=== PATIENT | female | born 1965 | race Caucasian/White ===

== ENCOUNTER → 2016-11-11 | Outpatient (CLI) | payer OTHER ==
[2016-11-11 10:33] LABS: Basophils % (A) 1 %; CH 31.8; CHCM 31.9; Eosinophils # (A) 0.2 k/uL (0-0.7); Eosinophils % (A) 3 %; HDW 2.04; HGB 12.6 gm/dL (11.4-16.0); Luc # (Auto) 0.18; Luc % (Auto) 3; Lymphocytes # (A) 1.3 k/uL (1.0-4.8); Lymphocytes % (A) 22 %; MCH 32.2 pg (25.0-35.0); MCHC 32.2 g/dL (31.0-37.0); MCV 100.2 fL (80.0-100.0); Monocytes # (A) 0.3 k/uL (0-1.0); Monocytes % (A) 6 %; Neutrophils # (A) 3.9 k/uL (1.3-7.7); Neutrophils % (A) 67 %; RBC 3.89 m/uL (3.80-5.40); WBC 5.8 k/uL (3.8-10.6); WBC (Perox) 6.29
[2016-11-11 11:09] LABS: ALT 27 U/L (9-52); AST 17 U/L (14-36); Alkaline Phosphatase 67 U/L (38-126); Anion Gap 10 mmol/L; Blood Urea Nitrogen 14 mg/dL (7-17); Calcium 10.3 mg/dL (8.4-10.2); Carbon Dioxide 23 mmol/L (22-30); Chloride 110 mmol/L (98-107); Cholesterol 139 mg/dL (<200); Glucose 108 mg/dL (74-99); HDL Cholesterol 61 mg/dL (40-60); Non-African American GFR(MDRD) >60 (>60 ml/min/1.73 sqM); Sodium 143 mmol/L (137-145); Total Bilirubin 0.4 mg/dL (0.2-1.3); Total Protein 7.2 g/dL (6.3-8.2); Triglycerides 56 mg/dL (<150)
== END | disposition home or self-care (01) ==
LOC: LABWHC1 10:12
PROVIDERS: ATTEND Family Medicine
DX: Z00.00 Encounter for general adult medical examination without abnormal findings (principal); E21.3 Hyperparathyroidism, unspecified
CPT/HCPCS: 36415; 80053; 80061; 83970; 84439; 84443; 85025

== ENCOUNTER → 2017-12-01 | Outpatient (CLI) | payer BC ==
[2017-12-01 09:11] LABS: Basophils # (A) 0.1 k/uL (0-0.2); Basophils % (A) 1 %; Eosinophils # (A) 0.3 k/uL (0-0.7); Eosinophils % (A) 5 %; HGB 12.7 gm/dL (11.4-16.0); Lymphocytes # (A) 1.9 k/uL (1.0-4.8); Lymphocytes % (A) 28 %; MCH 30.5 pg (25.0-35.0); MCV 98.6 fL (80.0-100.0); Mean Platelet Volume 7.2; Monocytes # (A) 0.4 k/uL (0-1.0); Monocytes % (A) 6 %; Neutrophils # (A) 3.8 k/uL (1.3-7.7); Neutrophils % (A) 58 %; Platelet Count 316 k/uL (150-450); RBC 4.16 m/uL (3.80-5.40); RDW 12.2 % (11.5-15.5); WBC 6.6 k/uL (3.8-10.6)
[2017-12-01 09:31] LABS: ALT 23 U/L (9-52); AST 19 U/L (14-36); Albumin 3.8 g/dL (3.5-5.0); Alkaline Phosphatase 78 U/L (38-126); Anion Gap 9 mmol/L; Blood Urea Nitrogen 16 mg/dL (7-17); Carbon Dioxide 25 mmol/L (22-30); Chloride 107 mmol/L (98-107); Cholesterol 165 mg/dL (<200); Glucose 92 mg/dL (74-99); HDL Cholesterol 63 mg/dL (40-60); LDL Cholesterol,Calculated 88 mg/dL (0-99); Sodium 141 mmol/L (137-145); Total Bilirubin 0.2 mg/dL (0.2-1.3); Total Protein 6.8 g/dL (6.3-8.2); Triglycerides 71 mg/dL (<150)
[2017-12-01 09:47] LABS: T4, Free (Free Thyroxine) 1.02 ng/dL (0.78-2.19)
== END | disposition home or self-care (01) ==
LOC: LABWHC1 08:29
PROVIDERS: ATTEND Family Medicine
DX: Z00.00 Encounter for general adult medical examination without abnormal findings (principal); E21.3 Hyperparathyroidism, unspecified
CPT/HCPCS: 36415; 80053; 80061; 83970; 84439; 84443; 85025

== ENCOUNTER → 2017-12-31 | Outpatient (CLI) | payer BC ==
--- NOTE | 2018-01-01 08:14 | MM ---
Reason for exam: additional evaluation requested from prior study. Last mammogram was performed 2 years and 1 month ago. History: Patient history of other cancer. Family history of breast cancer in grandmother at age 71. Benign US breast aspiration single LT of the left breast, July 30, 2014. Physical Findings: Nurse Summary: 0.5 x 1cm nodule in the right breast upper outer quadrant x 3, clustered, palpable (nurse ts). MG Diagnostic Mammo w CAD SHAN Bilateral CC and MLO view(s) were taken. Prior study comparison: December 13, 2015, bilateral MG 3d screening mammo w/cad. November 06, 2014, left breast MG diagnostic mammo LT w CAD. The breast tissue is heterogeneously dense. This may lower the sensitivity of mammography. Previous mammotome biopsy in the right breast. There is no new dominant lesion. These results were verbally communicated with the patient and result sheet given to the patient on 12/31/17. ASSESSMENT: Incomplete: need additional imaging evaluation, BI-RAD 0 RECOMMENDATION: Ultrasound of the left breast. (palpable)
--- NOTE | 2018-01-01 08:15 | USB ---
Reason for exam: additional evaluation requested from abnormal screening. History: Patient history of other cancer. Family history of breast cancer in grandmother at age 71. Benign US breast aspiration single LT of the left breast, July 30, 2014. US Breast Limited LT Left breast ultrasound demonstrates two oval, cystic lesions at 1 o'clock measuring 0.6 x 0.5 x 0.2cm and 0.7 x 0.7 x 0.3cm. These results were verbally communicated with the patient and result sheet given to the patient on 12/31/17. ASSESSMENT: Probably benign, BI-RAD 3 RECOMMENDATION: Ultrasound of the left breast in 6 months.
== END | disposition home or self-care (01) ==
LOC: RADMAMWWP 14:26
PROVIDERS: ATTEND Family Medicine
DX: N63.10 Unspecified lump in the right breast, unspecified quadrant (principal); N63.20 Unspecified lump in the left breast, unspecified quadrant; M19.90 Unspecified osteoarthritis, unspecified site
CPT/HCPCS: 77066

== ENCOUNTER → 2018-01-08 | Outpatient (CLI) | payer BC ==
--- NOTE | 2018-01-08 12:14 | BD ---
EXAMINATION TYPE: MG DEXA axial skeleton. DATE OF EXAM: 01/08/2018 COMPARISON: 02.05.2009 CLINICAL HISTORY: 52 YR OLD FEMALE.....ICD-10 CODE: M19.90 OA Height: 60.5 Weight: 170 FRAX RISK QUESTIONS: Alcohol (3 or more units per day): NO Family History (Parent hip fracture): NO Glucocorticoids (More than 3mos): NO (Ex: prednisone, prednisolone, methylprednisolone, dexamethasone, and hydrocortisone). History of Fracture in Adulthood: NO Secondary Osteoporosis: YES 1. Type 1 Diabetes: NO 2. Hyperthyroidism: YES 3. Menopause before 45: NA 4. Malnutrition: NO 5. Chronic liver disease: NO Rheumatoid Arthritis: NO Current Tobacco Use: NO RISK FACTORS HISTORY OF: BOTH ELBOWS, 26 YRS AGO Family History of Osteoporosis: YES, HER MOTHER Active: YES Diet low in dairy products/other sources of calcium: YES, A BIT LOW Postmenopausal woman: UNSURE, HYST FOR UTERUS ONLY Hyperparathyroidism: YES, VERY HIGH LEVELS.. Adrenal Insufficiency: NO MEDICATIONS: Additional Medications: NONE TO NOTE Additional History: MEN I, MULT ENDOCRINE NEOPLASIA, EXAM MEASUREMENTS: Bone mineral densitometry was performed using the [employer]. Bone mineral density as measured about the Lumbar spine is: ----- L1-L4(G/cm2): 1.157 T Score Values are as follows: ----- L1: -0.8 ----- L2: -1.0 ----- L3: 0.4 ----- L4: 0.2 ----- L1-L4: -0.2 Bone mineral density has: Decreased -4.5% since study of: 02.05.2009 Bone mineral density about the R hip (g/cm2): 1.005 Bone mineral density about the L hip (g/cm2): 1.003 T Score values are as follows: -----R Neck: -1.1 -----L Neck: -1.0 -----R Total: 0.0 -----L Total: 0.0 Bone mineral density has: Decreased -10.1% since study of: 02.05.2009 FRAX%S: THERE IS A 4.2% CHANCE OF A MAJOR OSTEOPOROTIC FX AND A 0.2% FOR A HIP FX....PROBABILITY O F FX IN 10 YRS TIME IMPRESSION: Osteopenia (T Score between -2.5 and -1) with regards to the right femur. There is slightly increased risk of fracture and the patient may be considered for treatment. Re-Screen 2-5 years. NOTE: T-SCORE=SD OF THE YOUNG ADULT MEAN.
== END | disposition home or self-care (01) ==
LOC: RADBDWWP 10:34
PROVIDERS: ATTEND Family Medicine
DX: M85.851 Other specified disorders of bone density and structure, right thigh (principal)
CPT/HCPCS: 77080

== ENCOUNTER 2018-05-18 09:29 | Observation (INO) | payer BC ==
[2018-05-18] MEDS ORDERED: ASPIRIN 81 MG PO STA (10:23)
[2018-05-18] MEDS ORDERED: DIAZEPAM 5 MG TAB PO STA (10:23)
--- NOTE | 2018-05-18 10:28 | ED ---
General Adult HPI - General Chief complaint: Recheck/Abnormal Lab/Rx Stated complaint: abd pain Time Seen by Provider: 05/18/18 10:05 Source: patient Mode of arrival: ambulatory Limitations: no limitations - History of Present Illness Initial comments: Patient is a 53-year-old female who presents with a chief complaint of neck pain and chest pain status post parathyroid venous testing on Sunday at [facility]. Patient states that the day after her procedure she felt well however over the subsequent days she developed pain in her neck, shoulders, and now radiating into the chest. The patient states that her pain is characterized as "tight." There are no aggravating or alleviating factors. Timing is constant. Patient states that she called her doctors at [facility] who stated that she should be evaluated for blood clots. Patient states she is taking Benton for pain without relief. - Related Data Previous Rx's Medication Instructions Recorded HYDROcodone/APAP 7.5-325MG [Benton 1 - 2 each PO Q6HR PRN #60 tab 09/14/14 7.5] Allergies Allergy/AdvReac Type Severity Reaction Status Date / Time No Known Allergies Allergy Verified 05/18/18 09:36 Review of Systems ROS Statement: Those systems with pertinent positive or pertinent negative responses have been documented in the HPI. ROS Other: All systems not noted in ROS Statement are negative. Cardiovascular: Reports: chest pain Musculoskeletal: Reports: back pain, other (Neck pain) Past Medical History Additional Past Medical History / Comment(s): hyperparathroidism History of Any Multi-Drug Resistant Organisms: None Reported Past Surgical History: Appendectomy, Breast Surgery, Cholecystectomy, Hysterectomy Additional Past Surgical History / Comment(s): lithotripsy. parathyroid surgery x2. lt breast boipsy Past Anesthesia/Blood Transfusion Reactions: Motion Sickness, Postoperative Nausea & Vomiting (PONV) Past Psychological History: No Psychological Hx Reported Smoking Status: Never smoker Past Alcohol Use History: Occasional Past Drug Use History: None Reported - Past Family History Father Family Medical History: Cancer General Exam Limitations: no limitations General appearance: alert, in no apparent distress Head exam: Present: atraumatic, normocephalic Eye exam: Present: normal appearance ENT exam: Present: normal exam Neck exam: Present: normal inspection, tenderness (Paraspinal tenderness). Absent: meningismus Respiratory exam: Present: normal lung sounds bilaterally. Absent: respiratory distress Cardiovascular Exam: Present: regular rate, normal rhythm GI/Abdominal exam: Present: soft. Absent: distended, tenderness Rectal exam: Present: deferred Extremities exam: Present: normal inspection Back exam: Present: normal inspection, full ROM. Absent: tenderness, CVA tenderness (R), CVA tenderness (L) Neurological exam: Present: alert, oriented X3, CN II-XII intact, normal gait Psychiatric exam: Present: normal affect, normal mood Skin exam: Present: warm, dry, intact Course Vital Signs 05/18/18 09:33 Temperature 97.8 F Pulse Rate 63 Respiratory 20 Rate Blood Pressure 128/85 O2 Sat by Pulse 100 Oximetry Medical Decision Making - Medical Decision Making Patient presents with chief complaint of neck pain, shoulder pain, chest pain status post venous parathyroid sampling on Sunday. The patient was sent to the emergency department today for concerns blood clots. On initial evaluation , her vital signs are stable, patient is in no acute distress. Patient saturating 100% on room air. Patient be evaluated with EKG, basic labs, and chest x-ray. Patient has a contrast ALLERGY therefore she may require steroid prep CT scans are necessary. D-dimer was sent though anticipated to be high given patient's recent procedure. I discussed the possibility of transfer to [facility], patient states that she would like to stay in house possible. EKG performed at 1111 shows normal sinus rhythm rate of 61 bpm. EKG is otherwise unremarkable. 12:05 PM Lab evaluation of this patient thus far is unremarkable except for a d-dimer elevation of 0.97. At this time, patient was given a dose of Lovenox and started on the 13 hour contrast ALLERGY protocol. This case was discussed with Dr. burciaga to accept admission for observation. I discussed with the patient, she is agreeable. - Lab Data Result diagrams: 05/18/18 11:04 05/18/18 11:04 Lab Results 05/18/18 05/18/18 05/18/18 Range/Units 11:04 11:04 11:04 WBC 12.6 H (3.8-10.6) k/uL RBC 4.33 (3.80-5.40) m/uL Hgb 13.1 (11.4-16.0) gm/dL Hct 41.1 (34.0-46.0) % MCV 94.9 (80.0-100.0) fL MCH 30.2 (25.0-35.0) pg MCHC 31.9 (31.0-37.0) g/dL RDW 12.3 (11.5-15.5) % Plt Count 304 (150-450) k/uL Neutrophils % 84 % Lymphocytes % 8 % Monocytes % 6 % Eosinophils % 0 % Basophils % 0 % Neutrophils # 10.6 H (1.3-7.7) k/uL Lymphocytes # 1.0 (1.0-4.8) k/uL Monocytes # 0.8 (0-1.0) k/uL Eosinophils # 0.1 (0-0.7) k/uL Basophils # 0.0 (0-0.2) k/uL D-Dimer 0.97 H (<0.60) mg/L FEU Sodium 138 (137-145) mmol/L Potassium 4.5 (3.5-5.1) mmol/L Chloride 107 (98-107) mmol/L Carbon Dioxide 27 (22-30) mmol/L Anion Gap 4 mmol/L BUN 14 (7-17) mg/dL Creatinine 0.84 (0.52-1.04) mg/dL Est GFR (CKD-EPI)AfAm >90 (>60 ml/min/1.73 sqM) Est GFR (CKD-EPI)NonAf 81 (>60 ml/min/1.73 sqM) Glucose 106 H (74-99) mg/dL Calcium 9.6 (8.4-10.2) mg/dL Troponin I (0.000-0.034) ng/mL NT-Pro-B Natriuret Pep pg/mL 05/18/18 05/18/18 Range/Units 11:04 11:04 WBC (3.8-10.6) k/uL RBC (3.80-5.40) m/uL Hgb (11.4-16.0) gm/dL Hct (34.0-46.0) % MCV (80.0-100.0) fL MCH (25.0-35.0) pg MCHC (31.0-37.0) g/dL RDW (11.5-15.5) % Plt Count (150-450) k/uL Neutrophils % % Lymphocytes % % Monocytes % % Eosinophils % % Basophils % % Neutrophils # (1.3-7.7) k/uL Lymphocytes # (1.0-4.8) k/uL Monocytes # (0-1.0) k/uL Eosinophils # (0-0.7) k/uL Basophils # (0-0.2) k/uL D-Dimer (<0.60) mg/L FEU Sodium (137-145) mmol/L Potassium (3.5-5.1) mmol/L Chloride (98-107) mmol/L Carbon Dioxide (22-30) mmol/L Anion Gap mmol/L BUN (7-17) mg/dL Creatinine (0.52-1.04) mg/dL Est GFR (CKD-EPI)AfAm (>60 ml/min/1.73 sqM) Est GFR (CKD-EPI)NonAf (>60 ml/min/1.73 sqM) Glucose (74-99) mg/dL Calcium (8.4-10.2) mg/dL Troponin I <0.012 (0.000-0.034) ng/mL NT-Pro-B Natriuret Pep 156 pg/mL Disposition Referrals: Godwin Bustos DO [Primary Care Provider] - 1-2 days
[2018-05-18 11:23] LABS: Basophils % (A) 0 %; Eosinophils # (A) 0.1 k/uL (0-0.7); Eosinophils % (A) 0 %; HCT 41.1 % (34.0-46.0); HGB 13.1 gm/dL (11.4-16.0); Lymphocytes % (A) 8 %; MCH 30.2 pg (25.0-35.0); MCHC 31.9 g/dL (31.0-37.0); MCV 94.9 fL (80.0-100.0); Mean Platelet Volume 7.1; Monocytes # (A) 0.8 k/uL (0-1.0); Monocytes % (A) 6 %; Neutrophils # (A) 10.6 k/uL (1.3-7.7); Neutrophils % (A) 84 %; Platelet Count 304 k/uL (150-450); RBC 4.33 m/uL (3.80-5.40); RDW 12.3 % (11.5-15.5); WBC 12.6 k/uL (3.8-10.6)
--- NOTE | 2018-05-18 11:29 | XR ---
EXAMINATION TYPE: XR chest 2V DATE OF EXAM: 05/18/2018 HISTORY: Pain. REFERENCE: NONE. FINDINGS: Heart size is upper limits of normal. The lungs are clear. Pleural spaces are clear. IMPRESSION: NO ACTIVE CARDIOTHORACIC ABNORMALITY.
[2018-05-18 11:31] LABS: Anion Gap 4 mmol/L; Blood Urea Nitrogen 14 mg/dL (7-17); Calcium 9.6 mg/dL (8.4-10.2); Carbon Dioxide 27 mmol/L (22-30); Chloride 107 mmol/L (98-107); Glucose 106 mg/dL (74-99); Potassium 4.5 mmol/L (3.5-5.1); Sodium 138 mmol/L (137-145)
[2018-05-18] MEDS ORDERED: diphenhydrAMINE 50 MG/ML 1 ML VIAL IVP ONE (11:59)
[2018-05-18] MEDS ORDERED: methylPREDNISolone SOD SUCCI 125 MG/2 ML VIAL IV ONE (11:59)
[2018-05-18] MEDS ORDERED: FAMOTIDINE 20 MG/2 ML VIAL IV STA ×2 (11:59→17:50)
[2018-05-18] MEDS ORDERED: NALOXONE 0.4 MG/ML 1 ML VIAL IV PRN (12:03)
[2018-05-18] MEDS ORDERED: ENOXAPARIN 60 MG/0.6 ML SYRINGE SQ STA (12:03)
[2018-05-18 16:31] VITALS: BMI 34.0
[2018-05-18] MEDS ORDERED: HYDROcodone/APAP 5-325MG 1 EACH TAB PO PRN (17:24)
[2018-05-18] MEDS ORDERED: diphenhydrAMINE 50 MG/ML 1 ML VIAL IVP STA (17:50)
[2018-05-18] MEDS: ACETAMINOPHEN TAB 325 MG TAB PO PRN ×2 (17:56→22:00)
--- NOTE | 2018-05-18 18:49 | CT ---
CT CHEST FOR PULMONARY EMBOLISM. EXAMINATION TYPE: CT angio chest DATE OF EXAM: 05/18/2018 INDICATION: Elevated d-dimer CT DLP: 396.5 mGycm, Automated exposure control for dose reduction was used. CONTRAST: Patient injected with 125 mL of Isovue 370. COMPARISON: None TECHNIQUE: CT of the chest is performed on a spiral scan at 2 mm thick sections. Study is performed with intravenous contrast timed for evaluation for pulmonary embolism. This will limit additional po rtions of the evaluation. 3-D MIP images reconstructed by the technologist are reviewed on the compu ter in the coronal and sagittal planes. FINDINGS: No persistent filling defects are evident to suggest an acute pulmonary embolism. No mediastinal or hilar adenopathy enlarged by CT criteria is evident. The ascending aorta diameter at the level of the main pulmonary artery is 3.1 cm. The main pulmonary artery diameter at the bifur cation is 2.4 cm. There is a 0.9 cm pulmonary nodule medial left apex. Series [address] section through the upper abdomen. Left kidney appears somewhat atrophic. There may be montserrat e scarring or prior infarct along the posterior medial kidney. IMPRESSIONS: 1. No acute pulmonary embolism. 2. Pulmonary nodule left medial apex. Additional workup is recommended. Consider PET CT
[2018-05-18] MEDS: VIT A,C & E-LUTEIN-MINERALS 1 EACH TAB PO SCH (20:42)
--- NOTE | 2018-05-18 22:06 | CT ---
EXAMINATION TYPE: CT angio head neck DATE OF EXAM: 05/18/2018 HISTORY: Neck pain radiating towards back COMPARISON: None CT DLP: 318.6 mGycm. Automated Exposure Control for Dose Reduction was Utilized. TECHNIQUE: CTA scan of the neck is performed with IV Contrast, patient injected with 125 mL of Isovu e 370, axial images are obtained, coronal and sagittal reformatted images are reviewed. Three-D recon structed images are created on an independent workstation and reviewed. FINDINGS: Carotid/Vascular Structures: There is a three-vessel arch. Common carotid arteries appear unremarkabl e. Carotid bifurcations are normal. No focal stenosis is evident. Internal carotid arteries appear no rmal. No dissection is identified. Other: [place]: Internal carotid arteries bifurcate into A1 and M1 segments. A2 segments darrian ear unremarkable. Middle cerebral artery branches appear unremarkable. Vertebral arteries are patent and codominant. Basilar artery is unremarkable. Posterior cerebral vasculature appears normal. Communication Electronic Technician ior communicating arteries are patent bilaterally. The anterior communicating artery is patent. IMPRESSION: 1. No significant flow-limiting stenosis bilateral carotid bifurcations. 2. [place] appears within normal limits.
[2018-05-19 08:18] VITALS: RESP 16; TEMP 98.5
[2018-05-19] MEDS: VIT A,C & E-LUTEIN-MINERALS 1 EACH TAB PO SCH (08:26)
[2018-05-19 12:22] VITALS: BP 100/67; PULSE 74
--- NOTE | 2018-05-19 13:58 | P.HPIM ---
History of Present Illness H&P Date: 05/19/18 Chief Complaint: Chest pain/abdominal pain Patient is a 53-year-old female who presents with a chief complaint of neck pain and chest pain status post parathyroid venous testing on Sunday at [facility]. Patient states that the day after her procedure she felt well however over the subsequent days she developed pain in her neck, shoulders, and now radiating into the chest. The patient states that her pain is characterized as "tight." There are no aggravating or alleviating factors. Timing is constant. Patient states that she called her doctors at [facility] who stated that she should be evaluated for blood clots. Patient states she is taking Hans[place] for pain without relief. Review of Systems Review of system is as per HPI Past Medical History Additional Past Medical History / Comment(s): hyperparathroidism, MEN type 1 History of Any Multi-Drug Resistant Organisms: None Reported Past Surgical History: Appendectomy, Breast Surgery, Cholecystectomy, Hysterectomy Additional Past Surgical History / Comment(s): lithotripsy. parathyroid surgery x2. lt breast boipsy. left shoulder surgery Past Anesthesia/Blood Transfusion Reactions: Motion Sickness, Postoperative Nausea & Vomiting (PONV) Past Psychological History: No Psychological Hx Reported Smoking Status: Never smoker Past Alcohol Use History: Occasional Past Drug Use History: None Reported - Past Family History Mother Additional Family Medical History / Comment(s): MEN type 1 led to tumors on pancreas, part of pancreas removed which led to DM Father Family Medical History: Cancer Additional Family Medical History / Comment(s): Lung CA Medications and Allergies Home Medications Medication Instructions Recorded Confirmed Type Meclizine [Antivert] 12.5 mg PO Q6H PRN 05/18/18 05/18/18 History Vit C/E/Zn/Coppr/Lutein/Zeaxan 1 cap PO BID 05/18/18 05/18/18 History [Preservision Areds 2 Softgel] valACYclovir [Valtrex] 500 mg PO Q8HR PRN 05/18/18 05/18/18 History Allergies Allergy/AdvReac Type Severity Reaction Status Date / Time Iodinated Contrast- Oral and Allergy Unknown Verified 05/18/18 12:56 IV Dye Physical Exam Vitals: Vital Signs Temp Pulse Pulse Resp BP BP Pulse Ox 05/19/18 08:00 98.5 F 63 16 103/67 98 05/19/18 04:00 61 18 05/19/18 03:40 97.9 F 61 18 114/78 97 05/19/18 00:10 97.7 F 69 18 116/72 97 05/19/18 00:00 55 L 18 05/18/18 20:00 56 L 18 05/18/18 18:50 98.8 F 84 16 116/77 98 05/18/18 13:47 97.6 F 61 16 108/74 98 05/18/18 13:30 98.6 F 57 L 16 140/86 100 Intake and Output 05/18/18 05/19/18 05/19/18 22:59 06:59 14:59 Other: Voiding Method Toilet Toilet Toilet # Voids 1 1 Weight 81.647 kg - Constitutional General appearance: Present: average body habitus, cooperative, no acute distress - EENT Eyes: Present: anicteric sclerae, EOMI, PERRLA, normal appearance ENT: Present: hearing grossly normal, normal oropharynx Ears: bilateral: normal - Neck Neck: Present: normal ROM. Absent: lymphadenopathy, rigidity, thyromegaly Carotids: negative: bruit present Thyroid: bilateral: normal size, negative: enlarged, nodule - Respiratory Respiratory: bilateral: CTA, negative: rales, rhonchi, wheezing - Cardiovascular Rhythm: regular Heart sounds: normal: S1, S2 Abnormal Heart Sounds: Absent: systolic murmur, diastolic murmur - Gastrointestinal General gastrointestinal: Present: normal bowel sounds, soft. Absent: distended , organomegaly, tenderness - Genitourinary Genitourinary Comment(s): deferred - Integumentary Integumentary: Present: normal turgor. Absent: jaundiced, rash, ulcer - Neurologic Neurologic: Present: CNII-XII intact. Absent: focal deficits - Musculoskeletal Musculoskeletal: Present: gait normal, strength equal bilaterally - Psychiatric Psychiatric: Present: A&O x's 3, appropriate affect, intact judgment & insight Results CBC & Chem 7: 05/18/18 11:04 05/18/18 11:04 Labs: Abnormal Lab Results - Last 24 Hours (Table) 05/18/18 Range/Units 11:04 D-Dimer 0.97 H (<0.60) mg/L FEU Thrombosis Risk Factor Assmnt - Choose All That Apply Any of the Below Risk Factors Present?: Yes Each Factor Represents 1 point: Age 41-60 years, Obesity (BMI >25) Thrombosis Risk Factor Assessment Total Risk Factor Score: 2 Thrombosis Risk Factor Assessment Level: Low Risk Assessment and Plan Assessment: 1. Chest pain rule out PE - We will admit patient to cardiac telemetry unit and monitor EKG and cardiac enzymes - CTA of the chest was done which was negative for PE but does show a pulmonary nodule - Patient's workup and established care is at [facility] - Patient is completely asymptomatic this morning; no further complaint of chest shoulder or neck pain - Vital signs and labs are stable - We will discharge patient home with a plan to follow-up with [facility] for further care Time with Patient: Less than 30
--- NOTE | 2018-05-19 13:59 | P.DS ---
Providers Date of admission: 05/18/18 12:03 Expected date of discharge: 05/19/18 Attending physician: Jon Jean MD Primary care physician: Godwin Bustos Hospital Course: See progress note dated 05/19/2018 for details Patient Condition at Discharge: Serious Plan - Discharge Summary Discharge Rx Participant: No New Discharge Prescriptions: Continue Vit C/E/Zn/Coppr/Lutein/Zeaxan [Preservision Areds 2 Softgel] 1 cap PO BID valACYclovir [Valtrex] 500 mg PO Q8HR PRN PRN Reason: Cold Sores Meclizine [Antivert] 12.5 mg PO Q6H PRN PRN Reason: Motion Sickness Discharge Medication List Meclizine [Antivert] 12.5 mg PO Q6H PRN 05/18/18 [History] Vit C/E/Zn/Coppr/Lutein/Zeaxan [Preservision Areds 2 Softgel] 1 cap PO BID 05/18 [History] valACYclovir [Valtrex] 500 mg PO Q8HR PRN 05/18/18 [History] Follow up Appointment(s)/Referral(s): Godwin Bustos DO [Primary Care Provider] - 1-2 days Discharge Disposition: HOME SELF-CARE
== END 2018-05-19 12:30 | disposition home or self-care (01) ==
LOC: EC 09:29 → 3OBS 12:03
PROVIDERS: ADMIT Internal Medicine; ATTEND Internal Medicine
DX: R07.9 Chest pain, unspecified (principal); R79.89 Other specified abnormal findings of blood chemistry; M54.2 Cervicalgia; M25.519 Pain in unspecified shoulder; R91.1 Solitary pulmonary nodule; R10.9 Unspecified abdominal pain; M54.9 Dorsalgia, unspecified; E31.21 Multiple endocrine neoplasia [MEN] type I; E21.3 Hyperparathyroidism, unspecified; E66.9 Obesity, unspecified; Z68.34 Body mass index [BMI] 34.0-34.9, adult; Z90.49 Acquired absence of other specified parts of digestive tract; Z91.041 Radiographic dye allergy status; Z90.710 Acquired absence of both cervix and uterus; Z90.89 Acquired absence of other organs; Z83.41 Family history of multiple endocrine neoplasia [MEN] syndrome; Z83.3 Family history of diabetes mellitus; Z83.49 Family history of other endocrine, nutritional and metabolic diseases; Z80.1 Family history of malignant neoplasm of trachea, bronchus and lung; E89.2 Postprocedural hypoparathyroidism
CPT/HCPCS: 99285 ×2; 96374 ×2; 96375 ×3; 96372 ×2; 96376; 36415; 93005; 85379; 83880; 80048; 84484; 85025; 71046; 70496; 70498; 71275; G0378 ×2; J1200; J2930; J1650; Q9967

== ENCOUNTER → 2019-12-04 | Outpatient (CLI) | payer BC ==
[2019-12-04 10:44] LABS: Basophils % (A) 0 %; Eosinophils # (A) 0.2 k/uL (0-0.7); Eosinophils % (A) 3 %; HCT 42.4 % (34.0-46.0); HGB 12.8 gm/dL (11.4-16.0); Lymphocytes # (A) 1.7 k/uL (1.0-4.8); Lymphocytes % (A) 26 %; MCH 29.3 pg (25.0-35.0); MCHC 30.2 g/dL (31.0-37.0); Mean Platelet Volume 7.6; Monocytes # (A) 0.4 k/uL (0-1.0); Monocytes % (A) 6 %; Neutrophils # (A) 4.1 k/uL (1.3-7.7); Neutrophils % (A) 61 %; Platelet Count 296 k/uL (150-450); RBC 4.37 m/uL (3.80-5.40); RDW 13.9 % (11.5-15.5); WBC 6.7 k/uL (3.8-10.6)
[2019-12-04 16:03] LABS: African American GFR (CKD) 85.2 (60.0-200.0); Albumin 4.3 g/dL (3.80-4.90); Albumin/Globulin Ratio 1.65 (1.60-3.17); Chol/HDL Ratio 2.55; Globulin 2.6 g/dL (1.6-3.3); Non-African American GFR(CKD) 73.5 (60.0-200.0); Potassium 4.9 mmol/L (3.5-5.5); Total Bilirubin 0.6 mg/dL (0.2-1.2); Total Protein 6.9 g/dL (6.2-8.2)
[2019-12-04 16:12] LABS: T4, Free (Free Thyroxine) 1.2 ng/dL (0.80-1.80)
[2019-12-04 17:08] LABS: Hemoglobin A1C 5.2 % (4.0-6.0)
== END | disposition home or self-care (01) ==
LOC: LABWHC1 10:04
PROVIDERS: ATTEND Family Medicine
DX: Z00.00 Encounter for general adult medical examination without abnormal findings (principal); E21.3 Hyperparathyroidism, unspecified
CPT/HCPCS: 36415; 80053; 80061; 83036; 83970; 84439; 84443; 85025

== ENCOUNTER → 2020-05-21 | Outpatient (CLI) | payer BC ==
--- NOTE | 2020-05-21 18:33 | BD ---
EXAMINATION TYPE: Axial Bone Density DATE OF EXAM: 05/21/2020 COMPARISON: 02.04.2018 CLINICAL HISTORY: 55 YR OLD FEMALE ICD-10 CODE: E21.3 HYPERPARATHYROIDISM Height: 60.2 Weight: 196 FRAX RISK QUESTIONS: Family History (Parent hip fracture): NO FX History of Fracture in Adulthood: YES 3. Menopause before 45: 49 YRS OLD RISK FACTORS HISTORY OF: HX OF BOTH ELBOWS BROKEN AT 27 YRS OLD History of Wrist Fracture: LT WRIST AT 27 YRS OLD Family History of Osteoporosis: YES, HER MOTHER, NO HIP FX Postmenopausal woman: YES, 47 YRS OLD OR OLDER Hyperparathyroidism: YES Adrenal Insufficiency: NO MEDICATIONS: Prednisone or other steroids: ONLY ON AND OFF Additional Medications: VIT D Additional History: HYPERCALCEMIA, RENAL CONCERNS, BLOCKAGE AND SHRINKAGE, HYPERPARATHYROIDISM EXAM MEASUREMENTS: Bone mineral densitometry was performed using the [employer]. Bone mineral density as measured about the Lumbar spine is: ----- L1-L4(G/cm2): 1.286 T Score Values are as follows: ----- L1: -0.1 ----- L2: 0.3 ----- L3: 1.0 ----- L4: 1.9 ----- L1-L4: 0.9 Bone mineral density has: Increased 11.8% since study of: 02.04.2018 Bone mineral density about the R hip (g/cm2): 0.957 Bone mineral density about the L hip (g/cm2): 1.042 T Score values are as follows: -----R Neck: -1.4 -----L Neck: -1.1 -----R Total: --0.4 -----L Total: 0.3 Bone mineral density has: Decreased -0.5% since study of: 02.04.2018 FRAX%s: THERE IS A 9.4% CHANCE FOR A MAJOR OSTEOPOROTIC FX AND A -0.5% FOR HIP.....PROBABILITY FOR FX IN 10 YRS TIME IMPRESSION: Osteopenia (T Score between -2.5 and -1). There is slightly increased risk of fracture and the patient may be considered for treatment. Re-Screen 2-5 years. NOTE: T-SCORE=SD OF THE YOUNG ADULT MEAN.
== END | disposition home or self-care (01) ==
LOC: RADBDWWP 13:20
PROVIDERS: ATTEND Internal Medicine Endocrinology, Diabetes & Metabolism
DX: M85.80 Other specified disorders of bone density and structure, unspecified site (principal); D3A.8 Other benign neuroendocrine tumors
CPT/HCPCS: 77080

== ENCOUNTER → 2020-05-27 | Outpatient (CLI) | payer BC ==
[2020-05-27 18:39] LABS: Prolactin 7.1 ng/mL (2.8-29.2)
== END | disposition home or self-care (01) ==
LOC: LABWHC1 10:35
PROVIDERS: ATTEND Internal Medicine Endocrinology, Diabetes & Metabolism
DX: E31.21 Multiple endocrine neoplasia [MEN] type I (principal); D3A.8 Other benign neuroendocrine tumors; E21.3 Hyperparathyroidism, unspecified; M62.81 Muscle weakness (generalized)
CPT/HCPCS: 36415; 82306; 82533; 83970; 84146

== ENCOUNTER → 2020-06-07 | Outpatient (CLI) | payer BC ==
--- NOTE | 2020-06-08 03:47 | MR ---
EXAMINATION TYPE: MR abdomen wo/w con DATE OF EXAM: 06/07/2020 COMPARISON: None HISTORY: Evaluate for neuroendocrine tumors CONTRAST: Standard multiplanar, multisequence MRI departmental protocol utilizing 9 mL intravenous Gadavist isaak olinium contrast. There is a small left kidney with deformity consistent with scarring. There is no hydronephrosis. The re are bilateral small renal cortical cysts that measure up to 10 mm. I see no evidence of retroperit castaneda adenopathy. There is no evidence of adrenal mass. Liver shows no focal defect. The bile ducts are not dilated. Spleen is intact. There is a 8 mm focus of increased signal in the posterior body of the pancreas on the T2 images. This area has low signal on precontrast images and appears to enhance with the contrast. This is therefore not a cyst. The kapoor creatic duct appears normal. Common bile duct appears normal. Gallbladder is absent. The stomach is i ntact. There is no evidence of gastric mass. There is no ascites. There is no sign of pleural effusion. I see no evidence of an intestinal mass. T he contrast images show no pathologic enhancement. IMPRESSION: Deformity of the left kidney consistent with scarring similar to the old CT scan of 02/17/2015. There is small enhancing focus in the posterior body of the pancreas that could be potentially a min roendocrine tumor. This lesion is probably present on the old CT scan of 02/17/2015.
== END | disposition home or self-care (01) ==
LOC: RADMRIMAIN 20:53
PROVIDERS: ATTEND Internal Medicine Endocrinology, Diabetes & Metabolism
DX: D3A.8 Other benign neuroendocrine tumors (principal); E31.21 Multiple endocrine neoplasia [MEN] type I; E21.3 Hyperparathyroidism, unspecified
CPT/HCPCS: 74183; A9585

== ENCOUNTER → 2020-09-07 | Outpatient (CLI) | payer BC | END | disposition home or self-care (01) | LOC: LABWHC1 16:04 | PROVIDERS: ATTEND Family Medicine | DX: Z20.828 Contact with and (suspected) exposure to other viral communicable diseases (principal) | CPT/HCPCS: U0003; C9803 ==

== ENCOUNTER → 2020-12-20 | Outpatient (CLI) | payer BC ==
[2020-12-20 18:52] LABS: Basophils # (A) 0.05 X 10*3/uL (0.00-0.10); Basophils % (A) 0.7 %; Eosinophils # (A) 0.17 X 10*3/uL (0.04-0.35); Eosinophils % (A) 2.5 %; HCT 41.2 % (37.2-46.3); HGB 13.2 g/dL (12.0-15.0); Lymphocytes # (A) 2.01 X 10*3/uL (0.90-5.00); MCH 31.2 pg (27.0-32.0); MCV 97.4 fL (80.0-97.0); Mean Platelet Volume 10.9 fL (9.5-12.2); Monocytes # (A) 0.62 X 10*3/uL (0.20-1.00); Monocytes % (A) 8.9 %; Neutrophils # (A) 4.07 X 10*3/uL (1.80-7.70); Neutrophils % (A) 58.8 %; Platelet Count 312 X 10*3/uL (140-440); RBC 4.23 X 10*6/uL (4.10-5.20); RDW 13.9 % (11.5-14.5); WBC 6.93 X 10*3/uL (4.50-10.00)
[2020-12-20 19:43] LABS: African American GFR (CKD) 74.5 (60.0-200.0); Albumin 4.6 g/dL (3.80-4.90); Albumin/Globulin Ratio 1.84 (1.60-3.17); Calcium 10.4 mg/dL (8.7-10.3); Chol/HDL Ratio 3.3; Globulin 2.5 g/dL (1.6-3.3); LDL Cholesterol,Calculated 118.4 mg/dL (0.0-131.0); Non-African American GFR(CKD) 64.3 (60.0-200.0); Phosphorus 2.5 mg/dL (2.4-5.1); Potassium 4.9 mmol/L (3.5-5.5); Total Bilirubin 0.5 mg/dL (0.2-1.2); Total Protein 7.1 g/dL (6.2-8.2); VLDL Calculation 33.6 mg/dL (5.00-40.00)
[2020-12-20 19:52] LABS: T4, Free (Free Thyroxine) 1.1 ng/dL (0.80-1.80)
== END | disposition home or self-care (01) ==
LOC: LABWHC1 11:21
PROVIDERS: ATTEND Family Medicine
DX: Z00.00 Encounter for general adult medical examination without abnormal findings (principal); E55.9 Vitamin D deficiency, unspecified; E21.3 Hyperparathyroidism, unspecified
CPT/HCPCS: 36415; 80053; 80061; 80069; 82306; 82533; 82941; 83036; 83970; 84439; 84443; 85025

== ENCOUNTER → 2021-09-22 | Outpatient (CLI) | payer BC ==
--- NOTE | 2021-09-23 08:55 | CT ---
EXAMINATION TYPE: CT abdomen pelvis wo con DATE OF EXAM: 09/22/2021 COMPARISON: 02/17/2015 HISTORY: Microhematuria, abdominal pain. Hx Mulltiple endocrine neoplasia 1 CT DLP: 765.30 mGycm Automated exposure control for dose reduction was used. TECHNIQUE: Helical acquisition of images was performed from the lung bases through the pelvis. FINDINGS: LUNG BASES: No significant abnormality is appreciated. LIVER/GB: No significant abnormality is appreciated. PANCREAS: Surgical clips are seen in the peripancreatic region which obscures the previously noted pa ncreatic lesions. Postcontrast exam would be required for further evaluation or MRI. SPLEEN: No significant abnormality is seen. ADRENALS: No significant abnormality is seen. KIDNEYS: Bilateral nephrolithiasis with innumerable calcification bilateral that has also been presen t on the prior study. Scarred kidneys bilaterally with moderate atrophy of the left kidney. No signif icant hydronephrosis or distention of either ureter. Lobulation and cortical loss involving both kidn eys suggestive of chronic medical renal disease. No obvious hydronephrosis. Assessment for mass. No c alcifications inside the urinary bladder. ADENOPATHY: None visualized. OSSEOUS STRUCTURES: Hypertrophic and degenerative changes of the vertebral element grade 1 anterolis thesis L3 on L4. BOWEL: No significant abnormality is seen. OTHER: There is a 3.5 cm mass is seen in the left lower pelvis near the pelvic sidewall which was not seen on the prior exam. Recommend pelvic ultrasound could potentially could be ovarian in etiology n onspecific calcifications in the left hemipelvis. IMPRESSION: 1. Bilateral nephrolithiasis with no obvious hydronephrosis. Cortical loss deformity of both kidneys are suggestive of chronic medical renal disease. Assessment for mass limited without contrast. Overal l morphology of the kidneys are similar to the prior exam. 2. Pancreatic lesions previously described are not well-seen on today's exam which may reflect noncon trast technique and severe artifact from apparent surgical clips in the peripancreatic region correla te clinically. If there is concern for pancreatic mass MRI would be required. 3. There is a new left adnexal soft tissue mass seen adjacent to the left pelvic sidewall measuring 3 .5 cm. Malignancy not excluded recommend pelvic ultrasound.
== END | disposition home or self-care (01) ==
LOC: RADCTMAIN 18:23
PROVIDERS: ATTEND Urology
DX: R31.1 Benign essential microscopic hematuria (principal); R10.9 Unspecified abdominal pain; N20.0 Calculus of kidney; K86.89 Other specified diseases of pancreas; R19.00 Intra-abdominal and pelvic swelling, mass and lump, unspecified site
CPT/HCPCS: 74176

== ENCOUNTER → 2021-11-29 | Outpatient (CLI) | payer BC ==
[2021-11-29 14:36] LABS: Appearance,Urine Clear (Clear); Bacteria,Urine Occasional /hpf; Bilirubin,Urine Negative (Negative); Blood,Urine Negative (Negative); Color,Urine Light Yellow; Glucose,Urine (UA) Negative (Negative); Ketones,Urine Negative (Negative); Leukocyte Esterase,Urine Large (Negative); Mucus,Urine Rare /hpf; Nitrite,Urine Negative (Negative); Protein,Urine Negative (Negative); RBC,Urine 3 /hpf (0-5); Specific Gravity,Urine 1.015 (1.001-1.035); Squamous Epithelial Cell,Urine <1 /hpf (0-4); Urobilinogen,Urine <2.0 mg/dL (<2.0); WBC,Urine 140 /hpf (0-5)
[2021-11-29 18:57] LABS: Basophils # (A) 0.05 X 10*3/uL (0.00-0.10); Basophils % (A) 0.6 %; Eosinophils # (A) 0.19 X 10*3/uL (0.04-0.35); Eosinophils % (A) 2.2 %; HCT 43.1 % (37.2-46.3); HGB 13.4 g/dL (12.0-15.0); Immature Grans, Automated 0.2 %; Lymphocytes # (A) 2.77 X 10*3/uL (0.90-5.00); Lymphocytes % (A) 32.7 %; MCH 30.6 pg (27.0-32.0); MCHC 31.1 g/dL (32.0-37.0); MCV 98.4 fL (80.0-97.0); Mean Platelet Volume 10.2 fL (9.5-12.2); Monocytes # (A) 0.73 X 10*3/uL (0.20-1.00); Monocytes % (A) 8.6 %; NRBC Per 100 WBC 0 /100 WBCS (0.0-0.0); Neutrophils % (A) 55.7 %; Platelet Count 329 X 10*3/uL (140-440); RBC 4.38 X 10*6/uL (4.10-5.20); RDW 12.7 % (11.5-14.5); WBC 8.46 X 10*3/uL (4.50-10.00)
[2021-11-29 19:09] LABS: ALT 28 U/L (8-44); AST 23 U/L (13-35); African American GFR (CKD) 76.4 (60.0-200.0); Albumin 4.6 g/dL (3.8-4.9); Albumin/Globulin Ratio 1.57 (1.60-3.17); Alkaline Phosphatase 94 U/L (41-126); BUN/Creat Ratio 18.69 Ratio (12.00-20.00); Blood Urea Nitrogen 18.2 mg/dL (9.0-27.0); Calcium 11.3 mg/dL (8.7-10.3); Carbon Dioxide 24.6 mmol/L (20.0-27.5); Chloride 105 mmol/L (96-109); Globulin 2.9 g/dL (1.6-3.3); Glucose 115 mg/dL (70-110); Non-African American GFR(CKD) 65.9 (60.0-200.0); Potassium 5.4 mmol/L (3.5-5.5); Sodium 141 mmol/L (135-145); Total Bilirubin <0.15 mg/dL (0.30-1.20); Total Protein 7.4 g/dL (6.2-8.2)
== END | disposition home or self-care (01) ==
LOC: LABPAT 12:28
PROVIDERS: ATTEND Urology
DX: Z01.812 Encounter for preprocedural laboratory examination (principal); N20.0 Calculus of kidney
CPT/HCPCS: 36415; 80053; 81001; 85025; 87086

== ENCOUNTER → 2021-12-05 | Outpatient (CLI) | payer BC ==
--- NOTE | 2021-12-06 02:10 | MR ---
EXAMINATION TYPE: MR pancreas wo/w con DATE OF EXAM: 12/05/2021 COMPARISON: MR scan 06/07/2020 HISTORY: Pancreatic mass, history of surgery CONTRAST: Standard multiplanar, multisequence MRI departmental protocol images were obtained without contrast a nd with 9 mL intravenous Gadavist gadolinium contrast. On the T2 images there is a 12 mm rounded focus of increased signal in the posterior aspect of the milla dy of the pancreas. The pancreatic duct is not dilated. The remainder of the pancreas has fairly norm al signal pattern. The spleen is intact. There is no discrete liver mass. There is no evidence of ple ural effusion. The bile ducts are not dilated. Kidneys have cortical thinning on the left side small cystic areas. This could relate to scarring fro m chronic pyelonephritis. There is some compensatory hypertrophy of the right kidney. There is no sandrita dence of retroperitoneal adenopathy. The contrast images show the small rounded pancreatic lesion shows some heterogeneous enhancement. Th is is not a cyst. There is no ascites. There is normal enhancement of the portal venous system. IMPRESSION: 12 mm mass in the body of the pancreas with some enhancement and increased 2 mm in diameter compared to the old exam. This is consistent with a solid pancreatic tumor. Normal pancreatic duct.
== END | disposition home or self-care (01) ==
LOC: RADMRIMAIN 20:40
PROVIDERS: ATTEND Family Medicine
DX: K86.89 Other specified diseases of pancreas (principal)
CPT/HCPCS: 74183; A9585

== ENCOUNTER 2021-12-07 06:45 | Day surgery (SDC) | payer BC ==
[2021-12-06 09:19] VITALS: BMI 36.6
--- NOTE | 2021-12-06 18:32 | P.GSHP ---
History of Present Illness H&P Date: 12/06/21 56 yo female with a history of stones and recurrent utis. SHe recentk had a ct scan identifying bilatereal renal stones carlito scarring left greater than right. SHe comes for removal of the right renal stones. Alternatives have been discussed - Constitutional Constitutional: Denies chills, Denies fever - EENT Eyes: denies blurred vision, denies pain Ears, nose, mouth and throat: Denies headache, Denies sore throat - Cardiovascular Cardiovascular: Denies chest pain, Denies shortness of breath - Respiratory Respiratory: Denies cough, Denies 7 - Gastrointestinal Gastrointestinal: Denies abdominal pain, Denies diarrhea, Denies nausea, Denies vomiting - Genitourinary (Female) Genitourinary: Denies dysuria, Denies hematuria - Genitourinary (Male) Genitourinary: Denies dysuria, Denies hematuria - Musculoskeletal Musculoskeletal: Denies myalgias - Integumentary Integumentary: Denies pruritus, Denies rash - Neurological Neurological: Denies numbness, Denies weakness - Psychiatric Psychiatric: Denies anxiety, Denies depression - Endocrine Endocrine: Denies fatigue, Denies weight change Past Medical History Additional Past Medical History / Comment(s): hyperparathroidism. KIDNEY STONES. CURRENTLY ON ANTIOBIOTIC FOR KIDNEY INFECTION. MEN type 1 w/HYPERCALCEMIA History of Any Multi-Drug Resistant Organisms: None Reported Past Surgical History: Appendectomy, Breast Surgery, Cholecystectomy, Hysterectomy, Orthopedic Surgery Additional Past Surgical History / Comment(s): lithotripsy. parathyroid surgery x2. lt breast boipsy. TUMOR REMOVED FROM LT LUNG-. TUMOR REMOVED FROM PANCREAS-HAD SPLENIC BLEED 04/10/19-REPAIRED AT [facility]. LT SHOULDER SX Past Anesthesia/Blood Transfusion Reactions: Motion Sickness, Postoperative Nausea & Vomiting (PONV) Smoking Status: Never smoker - Past Family History Mother Additional Family Medical History / Comment(s): MEN type 1 led to tumors on pancreas, part of pancreas removed which led to DM Father Family Medical History: Cancer Daughter(s) Additional Family Medical History / Comment(s): MEN TYPE 1 Medications and Allergies Home Medications Medication Instructions Recorded Confirmed Type Meclizine [Antivert] 12.5 mg PO Q6H PRN 05/18/18 12/06/21 History Vit C/E/Zn/Coppr/Lutein/Zeaxan 1 cap PO BID 05/18/18 12/06/21 History [Preservision Areds 2 Softgel] valACYclovir [Valtrex] 500 mg PO Q8HR PRN 05/18/18 12/06/21 History Cholecalciferol [Vitamin D3 (25 50 mcg PO BID 12/06/21 12/06/21 History Mcg = 1000 Iu)] Ciprofloxacin HCl [Cipro] 500 mg PO Q12HR 12/06/21 12/06/21 History Cyanocobalamin/Cobamamide [Vitamin 1 tab SUBLINGUAL DAILY 12/06/21 12/06/21 History B-12 5,000 Mcg Tab Sl] L-Tyrosine 500 mg PO DAILY 12/06/21 History Ondansetron [Zofran] 4 mg PO Q8HR PRN 12/06/21 12/06/21 History Allergies Allergy/AdvReac Type Severity Reaction Status Date / Time Iodinated Contrast Media Allergy Rash/Hives Verified 12/06/21 09:03 [Iodinated Contrast- Oral and IV Dye] NUCLEAR CONTRAST Allergy Rash/Hives Uncoded 12/06/21 09:03 Surgical - Exam - General well developed, well nourished, no distress - Eyes normal ocular movement, no icteric - ENT no hearing loss, no congestion - Neck no masses, trachea midline - Respiratory normal respiratory effort, clear to auscultation - Abdomen Abdomen: soft, non tender, no guarding, no rigid, no rebound - Integumentary no rash, no abnormal pigmentation - Neurologic no disoriented, no combative - Psychiatric oriented to time, oriented to person, oriented to place, speech is normal, memory intact Results - Imaging CT scan - abdomen: report reviewed, image reviewed CT scan - pelvis: report reviewed, image reviewed Assessment and Plan Assessment: Impression: Bilateral renal stones, with recurrent utis Plan: right ureteroscopy with laser lithotripsy
[~2021-12-07 06:45] MED LIST: AMPICILLIN 1,000 MG in SODIUM CHLORIDE 0.9% 50 ML IVPB PRN; DEXAMETHASONE SOD PHOSPHATE 4 MG/ML 1 ML VIAL IV ONE; HYDROmorphone 0.5 MG/0.5 ML SYRINGE IVP PRN; LACTATED RINGERS 1,000 ML IV SCH; ONDANSETRON 4 MG/2 ML VIAL IVP ONE
[2021-12-07] MEDS ORDERED: LACTATED RINGERS 1,000 ML IV ONE ×2 (07:11→08:56)
[2021-12-07] MEDS ORDERED: SCOPOLAMINE 1.5MG/72HR PATCH TRANSDERM STA (07:12)
[2021-12-07] MEDS ORDERED: PHENYLEPHRINE-0.9% NACL SYG 1,000 MCG/10 ML SYRINGE ONE (07:45)
[2021-12-07] MEDS ORDERED: GLYCOPYRROLATE 0.2 MG/ML 2 ML VIAL ONE (07:45)
[2021-12-07] MEDS ORDERED: LIDOCAINE 1% INJ 10MG/ML (20 ML MDV) ONE (07:45)
[2021-12-07] MEDS ORDERED: fentaNYL (PF) 50 MCG/ML 2 ML AMP ONE (07:45)
[2021-12-07] MEDS ORDERED: NEOSTIGMINE 1 MG/ML 10 ML VIAL ONE (07:45)
[2021-12-07] MEDS ORDERED: MIDAZOLAM 2 MG/2 ML VIAL ONE (07:45)
[2021-12-07] MEDS ORDERED: diphenhydrAMINE 50 MG/ML 1 ML VIAL ONE (07:45)
[2021-12-07] MEDS ORDERED: SUCCINYLCHOLINE CHLORIDE 100 MG/5 ML SYR IV ONE (07:45)
[2021-12-07] MEDS ORDERED: ROCURONIUM 10 MG/ML (5 ML VIAL) IV ONE (07:45)
[2021-12-07] MEDS ORDERED: PROPOFOL 10 MG/ML 20 ML VIAL IV ONE (07:45)
[2021-12-07] MEDS: GENTAMICIN 100 MG in SODIUM CHLORIDE 0.9% 100 ML IVPB PRN ×2 (08:17→08:22)
[2021-12-07] MEDS ORDERED: IOPAMIDOL-370 50ML BTL MISCELLANE ONE (08:47)
[2021-12-07] MEDS ORDERED: IOPAMIDOL-370 50ML BTL IRRIGATION ONE (08:47)
[2021-12-07 09:09] VITALS: RESP 16; TEMP 96.9
--- NOTE | 2021-12-07 09:16 | P.OP ---
Date of Procedure: 12/07/21 Preoperative Diagnosis: Recurrent urine infection, bilateral renal stones Postoperative Diagnosis: Same Procedure(s) Performed: Cystoscopy, right ureteroscopy laser lithotripsy, placement of 624 stent Anesthesia: DIONICIO Surgeon: Kyle Camarena Estimated Blood Loss (ml): 10 Pathology: none sent Condition: stable Disposition: PACU Indications for Procedure: Patient is 56. She came with recurring E. coli infections. She has no history of stones. She has bilateral renal stones with scarring. The question is whether the E. coli has secondarily infected the stones or whether she has chronic bladder issues. She comes for removal stones on the right side Description of Procedure: Patient brought to the operating suite. She's given general anesthesia. She's placed lithotomy position with sterile prep and drape. Cystoscopy Foroblique lens and 21-Kinyarwanda sheath identifies chronic cystitis cystica. The ureteral orifices are normal. No 35 wires passed up into the right ureter. Over the wires passed a 86-85-Zamsfv reentry sheath. The inner sheath is removed. I passed the flexible ureteroscope into the right collecting system. There does not appear to be any chronic infection. I go through each calyx and identify the large stones in the lower pole calyx . The stones appear to be calcium oxalate based on visual appearance and do not appear to be infected. With the 270 laser probe the stones are broken into find sand so that she can pass them out. At the end of the procedure there is no significant stones to be basketed or broken. Because of the recurrent infections however I will place a stent An 035 wires passed through the inner sheath. I removed the inner sheath and passed an 6 x 24 double-J cath that coils in the right renal pelvis and the bladder. the bladder is drained and the patient's awakened and returned recovery room good condition. She tolerated the procedure well be discharged home upon recovery. I'll keep her on Macrobid. I'll probably leave her on Macrobid for 6-8 weeks at a low-dose as I suspect she has chronic cystitis and I doubt that the kidney stones are stone infected based on the appearance of the collecting system and the stones.
[2021-12-07] MEDS ORDERED: KETOROLAC 15 MG/ML 1 ML VIAL IVP ONE (09:30)
[2021-12-07] MEDS ORDERED: HYDROmorphone 0.5 MG/0.5 ML SYRINGE IVP ONE (09:35)
--- NOTE | 2021-12-07 09:45 | FL ---
Fluoroscopy HISTORY: Right renal stones 1.27 minutes fluoroscopy time supplied to the referring clinician. 7 intraoperative C-arm images doc ument the procedure. See dictated report from urology.
[2021-12-07 10:07] VITALS: PULSE 66
[2021-12-07 10:22] VITALS: BP 117/81
== END 2021-12-07 11:03 | disposition home or self-care (01) ==
LOC: OR 06:45
PROVIDERS: ATTEND Urology
DX: N20.0 Calculus of kidney (principal); Z87.440 Personal history of urinary (tract) infections; E31.21 Multiple endocrine neoplasia [MEN] type I; E83.52 Hypercalcemia; E21.3 Hyperparathyroidism, unspecified; Z87.442 Personal history of urinary calculi; Z90.49 Acquired absence of other specified parts of digestive tract; Z90.710 Acquired absence of both cervix and uterus; Z90.2 Acquired absence of lung [part of]; Z98.890 Other specified postprocedural states; Z83.41 Family history of multiple endocrine neoplasia [MEN] syndrome; Z83.3 Family history of diabetes mellitus; Z80.9 Family history of malignant neoplasm, unspecified; Z79.899 Other long term (current) drug therapy; Z91.041 Radiographic dye allergy status
CPT/HCPCS: 74420; 52356; C2625; C1769; J2250; J1200; J1100; J2710; J2001; J3010; J1580; J0290; J1885; J2370; J0330; J2704; J1170; Q9967; J1790

== ENCOUNTER → 2022-03-27 | Outpatient (CLI) | payer BC ==
--- NOTE | 2022-03-27 13:54 | CT ---
EXAMINATION TYPE: CT abdomen pelvis wo con DATE OF EXAM: 03/27/2022 COMPARISON: CT dated 09/22/2021 HISTORY: Pancreatic mass, pelvic mass CT DLP: 1417 mGycm Automated exposure control for dose reduction was used. TECHNIQUE: Helical acquisition of images was performed from the lung bases through the pelvis. FINDINGS: Suboptimal CT scan due to the lack of oral and IV contrast administration. LUNG BASES: No significant abnormality is appreciated. LIVER/GB: Previous cholecystectomy. No definite hepatic focal lesion. PANCREAS: Artifacts from surgical clips and surgical material between the, and the pancreas. Subtle 5 mm hypodensity in the pancreatic tail, suboptimally assessed and could represent a tiny pancreatic c yst or slightly focally dilated pancreatic duct. Other tiny hypodensities are seen in the pancreatic head, grossly stable compared to the previous CT scan. SPLEEN: No significant abnormality is seen. ADRENALS: Slightly thickened left adrenal stable. Unremarkable right adrenal. KIDNEYS: Atrophic changes of the left kidney, appreciated previously. Multiple variable sized bilater al renal calculi and medullary calcifications. Please correlate for medullary nephrocalcinosis. No hy droureter or hydronephrosis. FREE AIR: No free air is visualized RETROPERITONEAL ADENOPATHY: None visualized REPRODUCTIVE ORGANS: No gross uterine or adnexal mass. The previously described left pelvic lesion is not appreciated by this CT scan. URINARY BLADDER: No significant abnormality is seen. PELVIC ADENOPATHY: No pathologically enlarged pelvic lymph nodes. OSSEOUS STRUCTURES: Degenerative changes of the lower lumbar spine. Osteopenia. No gross aggressive bone lesion. BOWEL: No significant abnormality is seen. OTHER: Minimal arterial atherosclerotic calcifications. No sizable ascites. IMPRESSION: Suboptimal assessment of the pancreas due to the lack of IV contrast administration. Few millimetric pancreatic hypodensities likely representing tiny cysts or IPMNs as described above. Further enhanced CT scan or MRI assessment can be considered. The previously seen left pelvic lesion is not appreciated by this CT scan. Further elective pelvic ul trasound assessment can be considered. Persistent bilateral renal calculi, atrophic left kidney and signs suggestive of bilateral medullary nephrocalcinosis. Other findings as described above.
== END | disposition home or self-care (01) ==
LOC: RADCTMAIN 08:53
PROVIDERS: ATTEND Family Medicine
DX: K86.9 Disease of pancreas, unspecified (principal); N20.0 Calculus of kidney; N26.1 Atrophy of kidney (terminal)
CPT/HCPCS: 74176

== ENCOUNTER → 2023-12-01 | Outpatient (CLI) | payer BC ==
[2023-12-01 21:57] LABS: Basophils # (A) 0.06 X 10*3/uL (0.00-0.10); Basophils % (A) 0.9 %; Eosinophils # (A) 0.14 X 10*3/uL (0.04-0.35); Eosinophils % (A) 2.2 %; HCT 40.2 % (37.2-46.3); Lymphocytes # (A) 1.72 X 10*3/uL (0.90-5.00); Lymphocytes % (A) 26.7 %; MCH 31.2 pg (27.0-32.0); MCHC 32.3 g/dL (32.0-37.0); MCV 96.4 FL (80.0-97.0); Mean Platelet Volume 10.9 FL (9.5-12.2); Monocytes # (A) 0.69 X 10*3/uL (0.20-1.00); Monocytes % (A) 10.7 %; NRBC Per 100 WBC 0 X 10*3/uL (0.00-0.01); Neutrophils # (A) 3.81 X 10*3/uL (1.80-7.70); Neutrophils % (A) 59.3 %; Platelet Count 332 X 10*3/uL (140-440); RBC 4.17 X 10*6/uL (4.10-5.20); WBC 6.43 X 10*3/uL (4.50-10.00)
[2023-12-01 22:25] LABS: ALT 24 U/L (8-44); AST 20 U/L (13-35); Albumin 4.4 g/dL (3.8-4.9); Albumin/Globulin Ratio 1.63 Ratio (1.60-3.17); Alkaline Phosphatase 98 U/L (41-126); BUN/Creat Ratio 15.56 Ratio (12.00-20.00); Calcium 10.3 mg/dL (8.7-10.3); Carbon Dioxide 23.9 mmol/L (21.6-31.8); Chloride 105 mmol/L (96-109); Chol/HDL Ratio 3.17 Ratio; Globulin 2.7 g/dL (1.6-3.3); Glucose 116 mg/dL (70-110); LDL Cholesterol,Calculated 121.9 mg/dL (0.0-131.0); Potassium 4.7 mmol/L (3.5-5.5); Sodium 139 mmol/L (135-145); Total Bilirubin 0.3 mg/dL (0.3-1.2); Total Protein 7.1 g/dL (6.2-8.2); VLDL Calculation 17.74 mg/dL (5.00-40.00)
== END | disposition home or self-care (01) ==
LOC: LABWHC1 09:18
PROVIDERS: ATTEND Family Medicine
DX: Z00.00 Encounter for general adult medical examination without abnormal findings (principal); E55.9 Vitamin D deficiency, unspecified; E21.3 Hyperparathyroidism, unspecified; R73.9 Hyperglycemia, unspecified
CPT/HCPCS: 36415; 80053; 80061; 82306; 83036; 83970; 84439; 84443; 85025

== ENCOUNTER → 2024-01-23 | Outpatient (CLI) | payer BC ==
--- NOTE | 2024-01-24 08:48 | MM ---
Reason for Exam: Screening (asymptomatic). Last mammogram was performed 6 year(s) and 1 month(s) ago. Patient History: Menarche at age 14. First Full-Term at age 27. Hysterectomy at age 48. Other cancer, age 23. 07/30/2014, Benign Cyst Aspiration on the left side. Maternal grandmother had breast cancer, age 71. Risk Values: Jhoana 5 year model risk: 1.4%. NCI Lifetime model risk: 8.9%. Prior Study Comparison: 11/06/2014 Left Diagnostic Mammogram, [facility]. 12/13/2015 Bilateral Screening Mammogram, [facility]. 12/31/2017 Bilateral Diagnostic Mammogram, [facility]. Tissue Density: The breasts are heterogeneously dense, which may obscure small masses. Findings: Analyzed By CAD. Left breast biopsy clip. Right breast: There is no suspicious group of microcalcifications or new suspicious mass. Left breast: There is no suspicious group of microcalcifications or new suspicious mass. Overall Assessment: Benign, BI-RAD 2 Management: Screening Mammogram of both breasts in [address] [facility] will attempt to contact patient to return for supplemental views and ultrasound if indicated. Patient should continue monthly self-breast exams. A clinical breast exam by your physician is recommended on an annual basis. This exam should not preclude additional follow-up of suspicious palpable abnormalities. Note on Jhoana scores and lifetime risk: 1. A Jhoana score greater than 3% is considered moderate risk. If this is the case, consider specialist referral to assess eligibility for a risk reducing agent. 2. If overall lifetime risk for the development of breast cancer is 20% or higher, the patient may qualify for future screening with alternating mammogram and breast MRI. Electronically signed and approved by: Roverto Kimble DO
== END | disposition home or self-care (01) ==
LOC: RADMAMWWP 16:12
PROVIDERS: ATTEND Family Medicine
DX: Z12.31 Encounter for screening mammogram for malignant neoplasm of breast (principal); Z80.3 Family history of malignant neoplasm of breast
CPT/HCPCS: 77063; 77067

== ENCOUNTER → 2024-12-27 | Outpatient (CLI) | payer BC ==
[2024-12-27 15:05] LABS: ALT 28 U/L (8-44); AST 23 U/L (13-35); Albumin 4.3 g/dL (3.8-4.9); Albumin/Globulin Ratio 1.59 Ratio (1.60-3.17); Alkaline Phosphatase 90 U/L (41-126); BUN/Creat Ratio 13.36 Ratio (12.00-20.00); Blood Urea Nitrogen 14.7 mg/dL (9.0-27.0); Calcium 10.3 mg/dL (8.7-10.3); Chloride 113 mmol/L (96-109); Chol/HDL Ratio 3.76 Ratio; Globulin 2.7 g/dL (1.6-3.3); Glucose 120 mg/dL (70-110); LDL Cholesterol,Calculated 136.9 mg/dL (0.0-131.0); Potassium 4.9 mmol/L (3.5-5.5); Sodium 144 mmol/L (135-145); T4, Free (Free Thyroxine) 1.26 ng/dL (0.80-1.80); Total Bilirubin 0.4 mg/dL (0.3-1.2)
[2024-12-27 15:58] LABS: Basophils # (A) 0.05 X 10*3/uL (0.00-0.10); Basophils % (A) 0.8 %; Eosinophils # (A) 0.23 X 10*3/uL (0.04-0.35); Eosinophils % (A) 3.6 %; HCT 41.3 % (37.2-46.3); HGB 12.7 g/dL (12.0-15.0); Lymphocytes # (A) 2.15 X 10*3/uL (0.90-5.00); Lymphocytes % (A) 33.8 %; MCH 30.1 pg (27.0-32.0); MCHC 30.8 g/dL (32.0-37.0); MCV 97.9 FL (80.0-97.0); Mean Platelet Volume 10.8 FL (9.5-12.2); Monocytes # (A) 0.67 X 10*3/uL (0.20-1.00); Monocytes % (A) 10.5 %; NRBC Per 100 WBC 0 X 10*3/uL (0.00-0.01); Neutrophils # (A) 3.24 X 10*3/uL (1.80-7.70); Platelet Count 304 X 10*3/uL (140-440); RBC 4.22 X 10*6/uL (4.10-5.20); RDW 13.2 % (11.5-14.5); WBC 6.36 X 10*3/uL (4.50-10.00)
== END | disposition home or self-care (01) ==
LOC: LABWHC1 08:58
PROVIDERS: ATTEND Family Medicine
DX: Z00.00 Encounter for general adult medical examination without abnormal findings (principal); E55.9 Vitamin D deficiency, unspecified; E21.3 Hyperparathyroidism, unspecified; R73.9 Hyperglycemia, unspecified
CPT/HCPCS: 36415; 80053; 80061; 82306; 83970; 84439; 84443; 85025

== ENCOUNTER → 2025-01-07 | Outpatient (CLI) | payer BC ==
--- NOTE | 2025-01-07 16:04 | CT ---
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 CT DLP: [address] CTDI: mGy Automated exposure control for dose reduction was used. Findings: The lung bases are clear. There is surgical absence of the gallbladder.. There is no biliary ductal d ilatation. There is no focal mass or organomegaly involving the liver, spleen or adrenal glands. There are multiple clips with metallic artifact involving the tail the pancreas which limits evaluati on. There is a 2 cm ring enhancing cystic mass in the body of the pancreas and neoplasm is not exclud ed. MRI of the pancreas is recommended for further evaluation. There is marked left renal atrophy. There are multiple bilateral obstructing renal calcifications. Th e largest calcification on the right is 8.5 mm. The largest calcification on the left is 12 mm. There is been no significant interval change compared to prior study. The caliber the abdominal aorta is normal is no retroperitoneal adenopathy or hemorrhage. The bowel loops are normal in caliber and there is no evidence of dilatation or obstruction. No infla mmatory changes are identified in the bowel wall or mesentery. There is no free intraperitoneal air or fluid. . The osseous structures and soft tissues are intact. IMPRESSION: 1. New 2 cm ring-enhancing mass in the body the pancreas suspicious for neoplasm. MRI is recommended for further evaluation. 2. Postoperative changes in the tail the pancreas which limits the evaluation of the pancreatic tail. 3. Stable marked left renal atrophy. 4. Stable bilateral nephrolithiasis as described above. There is no hydronephrosis. 5. Cholecystectomy. [facility], , 01/07/2025 4:02 PM
== END | disposition home or self-care (01) ==
LOC: RADCTMAIN 13:22
PROVIDERS: ATTEND Family Medicine
DX: C25.9 Malignant neoplasm of pancreas, unspecified (principal); N20.0 Calculus of kidney; N26.1 Atrophy of kidney (terminal); Z98.890 Other specified postprocedural states; Z90.49 Acquired absence of other specified parts of digestive tract
CPT/HCPCS: 74160; Q9967